=== PATIENT | female | born 1975 | race Two or more races ===

== ENCOUNTER 2019-06-04 10:39 | Emergency (ER) | payer SELFPAY ==
[~2019-06-04] VITALS: Ht 162.6 cm; Wt 67.6 kg
--- NOTE | 2019-06-04 12:36 | PHYS DOC ---
Adult General Chief Complaint Chief Complaint: ABDOMINAL PAIN IN [facility] HPI Patient is a 43 year old female presents to the ED complaining of vaginal bleeding �4 hours ago. Patient woke up this morning and had an episode of vaginal spotting around 8:30 this morning. Patient is 13 weeks . Patient is . No passing of clots. Last menstrual period was in mid February. Denies fever, abdominal pain, diarrhea, fever, chest pain, shortness of breath, lower leg swelling, vaginal discharge, STD exposure, dysuria or hematuria. paratransit operator used. Review of Systems Review of Systems Constitutional: Denies fever or chills [] Eyes: Denies change in visual acuity, redness, or eye pain [] HENT: Denies nasal congestion or sore throat [] Respiratory: Denies cough or shortness of breath [] Cardiovascular: No additional information not addressed in HPI [] GI: Denies abdominal pain, nausea, vomiting, bloody stools or diarrhea [] : Complains of vaginal spotting. Denies dysuria or hematuria [] Musculoskeletal: Denies back pain or joint pain [] Integument: Denies rash or skin lesions [] Neurologic: Denies headache, focal weakness or sensory changes [] All other systems were reviewed and found to be within normal limits, except as documented in this note. Allergies Allergies Allergies Coded Allergies Type Severity Reaction Last Updated Verified No Known Drug Allergies 06/04/19 No Physical Exam Physical Exam Constitutional: Well developed, well nourished, no acute distress, non-toxic appearance. [] HENT: Normocephalic, atraumatic Eyes: PERRLA, EOMI, conjunctiva normal, no discharge. [] Neck: Normal range of motion, no tenderness, supple, no stridor. [] Cardiovascular:Heart rate regular rhythm, no murmur [] Lungs & Thorax: Bilateral breath sounds clear to auscultation [] Abdomen: Bowel sounds normal, soft, no tenderness, no masses, no pulsatile masses. [] : Deferred. Skin: Warm, dry, no erythema, no rash. [] Back: No tenderness, no CVA tenderness. [] Extremities: No tenderness, no cyanosis, no clubbing, ROM intact, no edema. [] Neurologic: Alert and oriented X 3, normal motor function, normal sensory function, no focal deficits noted. [] Psychologic: Affect normal, judgement normal, mood normal. [] Current Patient Data Vital Signs Vital Signs Date Time Temp Pulse Resp B/P (MAP) Pulse Ox O2 Delivery O2 Flow Rate FiO2 06/04/19 15:30 76 16 127/71 (89) 96 Room Air 06/04/19 12:15 99.2 99.2 Lab Values Laboratory Tests Test 06/04/19 12:35 06/04/19 12:45 06/04/19 12:50 Urine Collection Type Unknown Urine Color Red Urine Clarity Turbid Urine pH 6.5 Urine Specific [place] 1.020 Urine Protein mg/dL (NEG-TRACE) Urine Glucose (UA) mg/dL (NEG) Urine Ketones (Stick) mg/dL (NEG) Urine Blood Large (NEG) Urine Nitrite (NEG) Urine Bilirubin (NEG) Urine Urobilinogen Dipstick mg/dL (0.2 mg/dL) Urine Leukocyte Esterase (NEG) Urine RBC Tntc /HPF (0-2) Urine WBC 5-10 /HPF (0-4) Urine Bacteria Fobs /HPF (0-FEW) Maternal Serum HCG Beta Subunit 448641 mIU/mL (0-5) H Sodium Level 137 mmol/L (136-145) Potassium Level 4.0 mmol/L (3.5-5.1) Chloride Level 104 mmol/L (98-107) Carbon Dioxide Level 20 mmol/L (21-32) L Anion Gap 13 (6-14) Blood Urea Nitrogen 5 mg/dL (7-20) L Creatinine 0.3 mg/dL (0.6-1.0) L Estimated GFR (Cockcroft-Gault) 244.0 BUN/Creatinine Ratio 17 (6-20) Glucose Level 95 mg/dL (70-99) Calcium Level 9.1 mg/dL (8.5-10.1) Total Bilirubin 0.2 mg/dL (0.2-1.0) Aspartate Amino Transferase (AST) 24 U/L (15-37) Alanine Aminotransferase (ALT) 30 U/L (14-59) Alkaline Phosphatase 109 U/L (46-116) Total Protein 7.5 g/dL (6.4-8.2) Albumin 3.2 g/dL (3.4-5.0) L Albumin/Globulin Ratio 0.7 (1.0-1.7) L White Blood Count 8.9 x10^3/uL (4.0-11.0) Red Blood Count 4.49 x10^6/uL (3.50-5.40) Hemoglobin 9.4 g/dL (12.0-15.5) L Hematocrit 29.9 % (36.0-47.0) L Mean Corpuscular Volume 67 fL (79-100) L Mean Corpuscular Hemoglobin 21 pg (25-35) L Mean Corpuscular Hemoglobin Concent 31 g/dL (31-37) Red Cell Distribution Width 17.9 % (11.5-14.5) H Platelet Count 335 x10^3/uL (140-400) Neutrophils (%) (Auto) 77 % (31-73) H Lymphocytes (%) (Auto) 16 % (24-48) L Monocytes (%) (Auto) 7 % (0-9) Eosinophils (%) (Auto) 0 % (0-3) Basophils (%) (Auto) 0 % (0-3) Neutrophils # (Auto) 6.8 x10^3/uL (1.8-7.7) Lymphocytes # (Auto) 1.4 x10^3/uL (1.0-4.8) Monocytes # (Auto) 0.6 x10^3/uL (0.0-1.1) Eosinophils # (Auto) 0.0 x10^3/uL (0.0-0.7) Basophils # (Auto) 0.0 x10^3/uL (0.0-0.2) Platelet Estimate Adequate (ADEQUATE) Hypochromasia Marked Poikilocytosis Slight Anisocytosis Slight Microcytosis Marked Ovalocytes Few Laboratory Tests 06/04/19 12:50 Laboratory Tests 06/04/19 12:45 EKG EKG [] Radiology/Procedures Radiology/Procedures PROCEDURE: PREG MORE THAN OR EQ TO 14 WKS PREG MORE THAN OR EQ TO 14 WKS Clinical Indication: , vaginal bleeding. Comparison: None. TECHNIQUE: Real-time ultrasound imaging of the pelvis using transabdominal window is performed. Findings: Cervix length is approximately 3.6 cm. Uterus measures 14 x 10 x 9 cm. There is an intrauterine gestational sac, contour is smooth. No perigestational hemorrhage is seen. A pole is identified. A yolk sac is not seen. [place]-rump length 5.9 cm, 12 weeks and 3 days. Ultrasound EDC is 12/14/2019. Estimated heart rate 160 bpm. The right maternal ovary is identified and demonstrates normal blood flow. The left maternal ovary is not seen. No cul-de-sac free fluid is seen. IMPRESSION: Single live intrauterine gestation, estimated sonographic gestational age 12 weeks and 3 days.[] Course & Med Decision Making Course & Med Decision Making Pertinent Labs and Imaging studies reviewed. (See chart for details) []Gear Tester used. Patient has a history of anemia. Patient has had no active bleeding in the ED. Patients blood type is A+. Ultrasound shows single IUP. On reexamination, abdomen is soft nontender nondistended. No peritoneal signs. Tolerating by mouth. Discussed causes of threatened miscarriage and bleeding in early . 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 Provided contact information/education. Discussed the importance of follow-up for repeat beta hCG and serial monitoring. Discussed reasons to return to the ED. Patient understands and agrees with plan. Dragon Disclaimer Dragon Disclaimer This electronic medical record was generated, in whole or in part, using a voice recognition dictation system. Departure Departure Impression: Primary Impression: Threatened miscarriage in early Disposition: 01 HOME, SELF-CARE Condition: IMPROVED Referrals: NO PCP (PCP) NGHIA NUÑEZ MD Patient Instructions: Threatened Miscarriage JARAD MANRIQUEZ Jun 04, 2019 12:36
[2019-06-04 13:00] LABS: CLARITY,URINE TURBID; COLOR,URINE RED; PH,URINE 6.5
[2019-06-04 13:02] LABS: RBC,URINE TNTC /HPF (0-2)
[2019-06-04 13:05] LABS: BACTERIA,URINE FOBS /HPF (0-FEW)
--- NOTE | 2019-06-04 13:18 | RAD ---
PREG MORE THAN OR EQ TO 14 WKS Clinical Indication: , vaginal bleeding. Comparison: None. TECHNIQUE: Real-time ultrasound imaging of the pelvis using transabdominal window is performed. Findings: Cervix length is approximately 3.6 cm. Uterus measures 14 x 10 x 9 cm. There is an intrauterine gestational sac, contour is smooth. No perigestational hemorrhage is seen. A pole is identified. A yolk sac is not seen. [place]-rump length 5.9 cm, 12 weeks and 3 days. Ultrasound EDC is 12/14/2019. Estimated heart rate 160 bpm. The right maternal ovary is identified and demonstrates normal blood flow. The left maternal ovary is not seen. No cul-de-sac free fluid is seen. IMPRESSION: Single live intrauterine gestation, estimated sonographic gestational age 12 weeks and 3 days. Electronically signed by: Villa Fletcher MD (06/04/2019 1:15 PM) [id number]
[2019-06-04 13:25] LABS: BASO % 0 % (0-3); EOS % 0 % (0-3); HEMATOCRIT 29.9 % (36.0-47.0); HEMOGLOBIN 9.4 g/dL (12.0-15.5); LYMPH # 1.4 x10^3/uL (1.0-4.8); LYMPH % 16 % (24-48); MEAN CORPUSCULAR HEMOGLOBIN 21 pg (25-35); MEAN CORPUSCULAR HGB CONC 31 g/dL (31-37); MEAN CORPUSCULAR VOLUME 67 fL (79-100); MONO # 0.6 x10^3/uL (0.0-1.1); MONO % 7 % (0-9); NEUT # 6.8 x10^3/uL (1.8-7.7); NEUT % 77 % (31-73); PLATELET COUNT 335 x10^3/uL (140-400); RED BLOOD COUNT 4.49 x10^6/uL (3.50-5.40); RED CELL DISTRIBUTION WIDTH 17.9 % (11.5-14.5); WHITE BLOOD COUNT 8.9 x10^3/uL (4.0-11.0)
[2019-06-04 13:44] LABS: CALCIUM 9.1 mg/dL (8.5-10.1); CREATININE 0.3 mg/dL (0.6-1.0)
[2019-06-04 13:50] LABS: ALBUMIN 3.2 g/dL (3.4-5.0); ALBUMIN/GLOBULIN RATIO 0.7 (1.0-1.7); TOTAL BILIRUBIN 0.2 mg/dL (0.2-1.0); TOTAL PROTEIN 7.5 g/dL (6.4-8.2)
[2019-06-04 14:24] LABS: PLT ESTIMATE ADEQUATE (ADEQUATE)
[2019-06-04 14:25] LABS: ANISOCYTOSIS SLIGHT; HYPOCHROMIA MARKED; MICROCYTOSIS MARKED; OVALOCYTES FEW; POIKILOCYTOSIS SLIGHT
[2019-06-04 15:30] VITALS: BP 127/71
== END 2019-06-04 15:35 | disposition home or self-care (01) ==
LOC: ER 10:39
DX: O20.0 Threatened abortion (principal); Z3A.12 12 weeks gestation of pregnancy
CPT/HCPCS: 36415; 76805; 80053; 81001; 84702; 85025; 86900; 86901; 99285